=== PATIENT | female | born 1990 | race Caucasian/White ===

== ENCOUNTER 2021-02-18 23:25 | Emergency (ER) | payer OTHER ==
[~2021-02-18 23:25] MED LIST: AMOXICILLIN500 MG PO; ONDANSETRON ODT4 MG SL
[2021-02-19 01:58] LABS: BILIRUBIN NEGATIVE (NEGATIVE); BLOOD 3+ Ery/uL (NEGATIVE); CLARITY HAZY (CLEAR); COLOR YELLOW (YELLOW); GLUCOSE (U) NORMAL (NORMAL); LEUKOCYTES NEGATIVE Leu/uL (NEGATIVE); NITRITE NEGATIVE (NEGATIVE); PROTEIN NEGATIVE (NEGATIVE); SPECIFIC GRAVITY >=1.030 (1.001-1.030)
[2021-02-19 02:00] LABS: BASOPHIL 0.2 % (0-2); HCT 42.7 % (37.0-47.0); HGB 13.9 g/dl (12.5-16.0); LYMPHOCYTE 15.8 % (15-48); MCH 27.6 pg (25.0-31.0); MCHC 32.6 g/dL (32.0-36.0); MCV 84.9 fL (78.0-100.0); MONOCYTE 6.6 % (0-12); MPV 11.5 fL (6.0-9.5); NEUTROPHIL 76.1 % (41-80); NRBC 0; PLT 277 K/uL (150-400); RBC 5.03 M/uL (4.20-5.40); RDW 12.8 % (11.5-14.0); WBC 12.3 K/uL (4.0-10.5)
[2021-02-19 02:06] LABS: BACTERIA 2+
[2021-02-19 02:07] LABS: MUCOUS TRACE
[2021-02-19 02:10] LABS: CALCIUM OXALATE CRYSTALS TRACE
[2021-02-19 02:17] LABS: ALBUMIN 3.8 g/dL (3.4-5.0); BILIRUBIN - TOTAL 0.8 mg/dL (0.2-1.0); BUN/CREAT RATIO (CALC) 13.9 RATIO; CREATININE 0.72 mg/dL (0.51-0.95); GLOBULIN (CALCULATION) 3.6 g/dL; POTASSIUM 3.5 mmol/L (3.5-5.1); TOTAL PROTEIN 7.4 g/dL (6.4-8.2)
[2021-02-19] MEDS ORDERED: ONDANSETRON ODT4 MG PO (03:51)
== END 2021-02-19 04:05 | disposition home or self-care (01) ==
LOC: FER 23:25
PROVIDERS: Internal Medicine
DX: I88.0 Nonspecific mesenteric lymphadenitis (principal); R74.01 Elevation of levels of liver transaminase levels; Z88.0 Allergy status to penicillin
CPT/HCPCS: 36415; 80053; 81001; 83690; 84145; 85025

== ENCOUNTER → 2021-04-01 | Day surgery (SDC) | payer OTHER ==
[~2021-04-01] VITALS: Ht 157.5 cm; Wt 109.8 kg
[~2021-04-01] MED LIST changes: +ACETAMINOPHEN500 M1 PO; +COLACE100 MG PO; +IBUPROFEN400 MG PO; +MOTRIN600 MG PO; +ONDANSETRON ODT4 MG PO; +OXY-IR 5MG5 MG PO
[2021-04-01 08:40] LABS: HCG (URINE) SCREEN NEGATIVE (NEGATIVE)
[2021-04-01 09:12] LABS: ALBUMIN 3.9 g/dL (3.4-5.0); BILIRUBIN - TOTAL 0.9 mg/dL (0.2-1.0); BUN/CREAT RATIO (CALC) 17.5 RATIO; CREATININE 0.57 mg/dL (0.51-0.95); GLOBULIN (CALCULATION) 3.8 g/dL; POTASSIUM 4.1 mmol/L (3.5-5.1); TOTAL PROTEIN 7.7 g/dL (6.4-8.2)
== END | disposition home or self-care (01) ==
LOC: FAS 07:55
PROVIDERS: Student in an Organized Health Care Education/Training Program
DX: K80.12 Calculus of gallbladder with acute and chronic cholecystitis without obstruction (principal); K82.8 Other specified diseases of gallbladder; R74.01 Elevation of levels of liver transaminase levels; Z88.1 Allergy status to other antibiotic agents; Z87.891 Personal history of nicotine dependence; K76.0 Fatty (change of) liver, not elsewhere classified
CPT/HCPCS: 36415; 80053; 82150; 83690; 84703; J1100; J1170; J1644; J1885; J2250; J2405; J2704; J3010; J7120; Q9967